=== PATIENT | female | born 1955 | race Caucasian/White ===

== ENCOUNTER 2018-08-29 03:36 | Emergency (ER) | payer BC ==
[~2018-08-29] VITALS: Ht 162.6 cm; Wt 70.0 kg
[2018-08-29] MEDS ORDERED: nitroGLYCERIN 0.4mg SUBLingual tab SL PRN (03:50)
[2018-08-29] MEDS ORDERED: ondansetron/PF 4mg/2ml inj IV ONE (04:00)
[2018-08-29] MEDS ORDERED: morphine 4 MG/ML inj SYRINge IV PRN (04:00)
[2018-08-29 04:12] LABS: BASOPHILS # (AUTO) 0.1 X10'3 (0-0.2); BASOPHILS % (AUTO) 0.8 % (0-1); EOSINOPHILS # (AUTO) 0.1 X10'3 (0-0.9); EOSINOPHILS % (AUTO) 1.4 % (0-6); HEMATOCRIT 40.8 % (35.0-45.0); HEMOGLOBIN 13.7 g/dl (12.0-16.0); LYMPHOCYTES # (AUTO) 1.6 X10'3 (1.1-4.8); LYMPHOCYTES % (AUTO) 15.8 % (21-51); MEAN CORPUSCULAR HEMOGLOBIN 30.5 PG (27.0-31.0); MEAN CORPUSCULAR HGB CONC 33.7 g/dL (33.0-36.5); MEAN CORPUSCULAR VOLUME 90.5 FL (78-98); MEAN PLATELET VOLUME 9.2 FL (7.4-10.4); MONOCYTES # (AUTO) 1.4 X10'3 (0-0.9); MONOCYTES % (AUTO) 13.9 % (2-12); NEUTROPHILS # (AUTO) 6.9 X10'3 (1.8-7.7); NEUTROPHILS % (AUTO) 68.1 % (42-75); PLATELET COUNT 364 X10'3 (140-440); RED BLOOD COUNT 4.51 X10'6 (4.20-5.60); RED CELL DISTRIBUTION WIDTH 16.2 % (11.5-14.5); WHITE BLOOD COUNT 10.2 X10'3 (4.5-11.0)
--- NOTE | 2018-08-29 04:14 | NUR ---
Pt anxious. She belches alot.
--- NOTE | 2018-08-29 04:15 | NUR ---
Morphine making her sleepy and "loupy."
--- NOTE | 2018-08-29 04:18 | NUR ---
will hold off with the nitro, as the patient really fell asleep quickly with the morphine. Covered her with 2 warmed blankets. Spouse said it is a good idea to wait with NTG, as she has a hx of dropping her bp with morphine alone.
[2018-08-29 04:22] LABS: ALANINE AMINOTRANSFERASE 29 U/L (12-78); ALBUMIN 3.9 G/DL (3.4-5.0); ALBUMIN/GLOBULIN RATIO 1.2 (1.1-1.5); ALKALINE PHOSPHATASE 83 IU/L (46-116); ANION GAP 10 (8-16); ASPARTATE AMINO TRANSFERASE 17 U/L (10-37); BILIRUBIN,TOTAL 0.3 MG/DL (0.1-1.0); BLOOD UREA NITROGEN 17 MG/DL (7-18); BUN/CREATININE RATIO 25.8 (6.6-38.0); CALCIUM 9.3 MG/DL (8.5-10.1); CHLORIDE 103 MMOL/L (99-107); CREATININE 0.66 MG/DL (0.40-0.90); GLUCOSE 97 MG/DL (70-104); POTASSIUM 4.1 MMOL/L (3.5-5.1); SODIUM 140 MMOL/L (135-145); TOTAL CARBON DIOXIDE 27.2 MMOL/L (24-32); TOTAL PROTEIN 7.2 G/DL (6.4-8.2); eGFR > 90 ML/MIN
[2018-08-29 04:28] LABS: D-DIMER 0.26 MG/L FEU (0-0.50)
[2018-08-29 04:29] LABS: MAGNESIUM 2.1 MG/DL (1.5-2.4)
--- NOTE | 2018-08-29 04:50 | NUR ---
MD made aware of the CXR and the widening that it may have so CTA ordered.
[2018-08-29] MEDS ORDERED: iohexol 350MG/ML 100ml bottle IV ONE (04:57)
--- NOTE | 2018-08-29 05:03 | NUR ---
pt going out for her CTA now per W/C.
[2018-08-29 08:08] VITALS: BP 114/73
== END 2018-08-29 08:13 | disposition home or self-care (01) ==
LOC: ER 03:37
DX: K44.9 Diaphragmatic hernia without obstruction or gangrene (principal); R07.9 Chest pain, unspecified; R91.1 Solitary pulmonary nodule; G89.29 Other chronic pain; M25.512 Pain in left shoulder; M06.9 Rheumatoid arthritis, unspecified; Z85.3 Personal history of malignant neoplasm of breast; Z98.890 Other specified postprocedural states; Z88.0 Allergy status to penicillin
CPT/HCPCS: 36415; 71045; 71275; 80053; 83735; 83880; 84484; 85025; 85379; 93005; 96374; 96375; 99284; J2270; J2405; Q9967

== ENCOUNTER 2023-06-07 05:19 | Day surgery (SDC) | payer BC ==
[2023-06-06 11:22] LABS: BASOPHILS # (AUTO) 0.1 X10'3 (0-0.2); BASOPHILS % (AUTO) 0.8 % (0-1); EOSINOPHILS # (AUTO) 0.1 X10'3 (0-0.9); EOSINOPHILS % (AUTO) 1.8 % (0-6); LYMPHOCYTES # (AUTO) 0.9 X10'3 (1.1-4.8); MEAN CORPUSCULAR HEMOGLOBIN 29.7 PG (27.0-31.0); MEAN CORPUSCULAR HGB CONC 33.8 g/dL (33.0-36.5); MEAN CORPUSCULAR VOLUME 87.9 FL (78-98); MEAN PLATELET VOLUME 9.3 FL (7.4-10.4); MONOCYTES # (AUTO) 0.9 X10'3 (0-0.9); NEUTROPHILS # (AUTO) 5.2 X10'3 (1.8-7.7); NEUTROPHILS % (AUTO) 72.4 % (42-75); PRE OP HEMATOCRIT 39.4 % (35.0-45.0); PRE OP HEMOGLOBIN 13.3 g/dL (12.0-16.0); PRE OP PLATELET COUNT 299 X10'3 (140-440); PRE OP WHITE BLOOD COUNT 7.2 10'3 (4.8-10.8); RED BLOOD COUNT 4.49 X10'6 (4.20-5.60); RED CELL DISTRIBUTION WIDTH 14.1 % (11.5-14.5)
[2023-06-06 11:43] LABS: ALBUMIN 3.7 G/DL (3.4-5.0); ALBUMIN/GLOBULIN RATIO 1.2 (1.1-1.5); ALKALINE PHOSPHATASE 78 IU/L (46-116); BLOOD UREA NITROGEN 9 MG/DL (7-18); BUN/CREATININE RATIO 15.8 (10.0-20.0); CALCIUM 8.5 MG/DL (8.5-10.1); CHLORIDE 103 MMOL/L (99-107); CREATININE 0.57 MG/DL (0.40-0.90); PRE OP ALT 33 U/L (30-65); PRE OP ANION GAP 8 (8-16); PRE OP AST 17 U/L (10-37); PRE OP BILIRUB, TOTAL 0.9 MG/DL (0.0-1.0); PRE OP GLUCOSE 95 MG/DL (70-104); PRE OP POTASSIUM 3.8 MMOL/L (3.4-5.1); PRE OP SODIUM 140 MMOL/L (135-145); TOTAL CARBON DIOXIDE 28.8 MMOL/L (24-32); TOTAL PROTEIN 6.9 G/DL (6.4-8.2); eGFR > 90 ML/MIN
[2023-06-07] VITALS (9 sets, daily range): BP systolic 113–135; BP diastolic 71–87; PULSE 63–86; RESP 14–59; TEMP 97.4; O2SAT 96–98
[~2023-06-07] VITALS: Ht 157.5 cm; Wt 64.6 kg
[~2023-06-07 05:19] MED LIST: ACET-2119 PO; ATOR20TA66 PO; FOLI1TAB27 PO; HYDR-3965 PO; HYDR200T73 PO; LOSA25TA41 PO; METH2.5T55 PO; OMEGA 3; VITAMIN C
[2023-06-07] MEDS ORDERED: famotidine 20mg tablet PO ONE (05:30)
[2023-06-07] MEDS ORDERED: ringers solution, lacted 1,000 ML IV SCH ×2 (05:30→09:25)
[2023-06-07] MEDS ORDERED: LIDOCAINE 4% (40MG/ML) topical solution 50ml **BRONCH ONLY ONE (06:47)
[2023-06-07] MEDS ORDERED: epiNEPHrine 1 MG/ML 1 ml ampule **BRONCH ONLY ONE (06:47)
[2023-06-07] MEDS ORDERED: glycopyrrolate 0.2mg/ml inj ONE (07:40)
[2023-06-07] MEDS ORDERED: sevoflurane 250ml liquid IH ONE (07:40)
[2023-06-07] MEDS ORDERED: neostigmine methylsulfate 1 MG/ML 10ml vial ONE (07:40)
[2023-06-07] MEDS ORDERED: fentaNYL/PF 50MCG/1 ML 2ML syringe ONE (07:45)
[2023-06-07] MEDS ORDERED: midazolam 1 mg/ML 2ml injection ONE (07:46)
[2023-06-07] MEDS ORDERED: propofol inj 20 ML IV ONE (08:07)
[2023-06-07] MEDS ORDERED: ondansetron/PF 4mg/2ml inj ONE (08:08)
[2023-06-07] MEDS ORDERED: dexamethasone sod phosphate 4mg/ml inj. ONE (08:08)
[2023-06-07] MEDS ORDERED: LIDOcaine 2% (20mg/ml) 5ml vial ONE (08:08)
[2023-06-07] MEDS ORDERED: rocuronium 10mg/ml inj IV ONE (08:08)
[2023-06-07] MEDS ORDERED: meperidine/PF 25mg/ml syringe IV PRN ×3 (09:25)
[2023-06-07] MEDS ORDERED: morphine 4 MG/ML inj SYRINge IV PRN (09:25)
[2023-06-07] MEDS ORDERED: morphine 2 MG/ML inj. syringe IV PRN (09:25)
[2023-06-07] MEDS ORDERED: labetalol 20mg/4ml (5mg/ml) syringe IV PRN (09:25)
[2023-06-07] MEDS ORDERED: hydrALAZINE 20mg/ml inj. IV PRN (09:25)
[2023-06-07] MEDS ORDERED: acetaminophen 1,000mg/100ml IV 100 ML IV ONE (09:25)
[2023-06-07] MEDS ORDERED: ondansetron/PF 4mg/2ml inj IV PRN (09:25)
[2023-06-07] MEDS ORDERED: proCHLORperazine 10 MG/2 ml inj IV PRN (09:25)
== END 2023-06-07 10:26 | disposition home or self-care (01) ==
LOC: PAS 05:19
PROVIDERS: ATTEND Internal Medicine Critical Care Medicine
DX: R91.8 Other nonspecific abnormal finding of lung field (principal); I10 Essential (primary) hypertension; E78.5 Hyperlipidemia, unspecified; Z87.891 Personal history of nicotine dependence; Z85.3 Personal history of malignant neoplasm of breast; Z79.899 Other long term (current) drug therapy; Z88.0 Allergy status to penicillin; Z98.890 Other specified postprocedural states
CPT/HCPCS: 31624; 31628; 31629; 31653; 36415; 71045; 71250; 80053; 82948; 85025; 87015; 87070; 87102; 87116; 87206; 94760; J1100; J2250; J2405; J2704; J3010; J3490; J7120; S2900; Z7506; Z7508; Z7512; 31622; 31625; 31626; 31627; A4618; J0171; J2710

== ENCOUNTER → 2023-10-31 | Day surgery (SDC) | payer BC ==
[2023-10-24 12:29] LABS: BASOPHILS # (AUTO) 0.1 X10'3 (0-0.2); BASOPHILS % (AUTO) 0.7 % (0-1); EOSINOPHILS # (AUTO) 0.1 X10'3 (0-0.9); EOSINOPHILS % (AUTO) 0.8 % (0-6); LYMPHOCYTES # (AUTO) 1.1 X10'3 (1.1-4.8); LYMPHOCYTES % (AUTO) 13.5 % (21-51); MEAN CORPUSCULAR HEMOGLOBIN 29.6 PG (27.0-31.0); MEAN CORPUSCULAR HGB CONC 32.9 g/dL (33.0-36.5); MEAN CORPUSCULAR VOLUME 89.8 FL (78-98); MEAN PLATELET VOLUME 9.3 FL (7.4-10.4); MONOCYTES # (AUTO) 0.9 X10'3 (0-0.9); MONOCYTES % (AUTO) 11.2 % (2-12); NEUTROPHILS % (AUTO) 73.8 % (42-75); PRE OP HEMATOCRIT 41.8 % (35.0-45.0); PRE OP HEMOGLOBIN 13.7 g/dL (12.0-16.0); PRE OP PLATELET COUNT 316 X10'3 (140-440); PRE OP WHITE BLOOD COUNT 8.1 10'3 (4.8-10.8); RED BLOOD COUNT 4.65 X10'6 (4.20-5.60)
[2023-10-24 12:41] LABS: ALBUMIN/GLOBULIN RATIO 1.2 (1.1-1.5); ALKALINE PHOSPHATASE 110 IU/L (46-116); BLOOD UREA NITROGEN 16 MG/DL (7-18); BUN/CREATININE RATIO 33.3 (10.0-20.0); CALCIUM 9.3 MG/DL (8.5-10.1); CHLORIDE 105 MMOL/L (99-107); CREATININE 0.48 MG/DL (0.40-0.90); PRE OP ALT 41 U/L (30-65); PRE OP ANION GAP 2 (8-16); PRE OP AST 27 U/L (10-37); PRE OP BILIRUB, TOTAL 0.8 MG/DL (0.0-1.0); PRE OP GLUCOSE 81 MG/DL (70-104); PRE OP POTASSIUM 3.8 MMOL/L (3.4-5.1); PRE OP SODIUM 140 MMOL/L (135-145); TOTAL CARBON DIOXIDE 32.6 MMOL/L (24-32); TOTAL PROTEIN 7.4 G/DL (6.4-8.2); eGFR > 90 ML/MIN
[2023-10-24 12:56] LABS: PRE OP INR 0.9 INR; PRE OP PROTIME 10.1 SECONDS (9.0-12.0)
[2023-10-31] VITALS (11 sets, daily range): BP systolic 120–145; BP diastolic 73–87; PULSE 67–108; RESP 12–18; TEMP 98.2; O2SAT 96–100
[~2023-10-31] VITALS: Ht 157.5 cm; Wt 64.4 kg
[~2023-10-31] MED LIST changes: -ACET-2119 PO; -ATOR20TA66 PO; +CALCIUM CITRATE PO; +COD LIVER PO; +CYCL-1 PO; -FOLI1TAB27 PO; +GLUCOSAMINE PO; -HYDR200T73 PO; -METH2.5T55 PO; -OMEGA 3; +[UNRECOGNIZED DRUG - OTHER]; +dexamethasone sod phosphate 4mg/ml inj. ONE; +ePHEDrine 50MG/ML INJ. ONE; +fentaNYL/PF 50MCG/1 ML 2ML syringe ONE; +meperidine/PF 25mg/ml syringe IV PRN; +methylene blue (5mg/ml) 50mg/10ml ampul IV ONE; +midazolam 1 mg/ML 2ml injection ONE; +morphine 2 MG/ML inj. syringe IV PRN; +morphine 4 MG/ML inj SYRINge IV PRN; +ondansetron/PF 4mg/2ml inj IV PRN; +ondansetron/PF 4mg/2ml inj ONE; +proCHLORperazine 10 MG/2 ml inj IV PRN; +propofol inj 20 ML IV ONE; +ringers solution, lacted 1,000 ML IV SCH; +sevoflurane 250ml liquid IH ONE
[2023-10-31] MEDS: famotidine 20mg tablet PO ONE (12:33)
[2023-10-31] MEDS: ringers solution, lacted 1,000 ML IV SCH (12:33)
[2023-10-31] MEDS: clindamycin-Cleocin 900mg/D5W 50 ML IV ONE (12:33)
[2023-10-31] MEDS: gentamicin inj 300 MG in normal saline 100ml IV soln 100 ML IV ONE (12:33)
[2023-10-31] MEDS: BUPIVAcaine 2.5mg/ml inj 50ml vial (contains preservative) ONE (13:19)
[2023-10-31] MEDS: LIDOcaine 1% 30ml preserv. free vial ONE (14:02)
== END | disposition home or self-care (01) ==
LOC: PAS 11:41
PROVIDERS: ATTEND Surgery
DX: N62 Hypertrophy of breast (principal); Z79.899 Other long term (current) drug therapy; Z79.01 Long term (current) use of anticoagulants; Z88.0 Allergy status to penicillin; Z96.651 Presence of right artificial knee joint
CPT/HCPCS: 19125; 36415; 76098; 80053; 82948; 85025; 85610; 85730; 93005; J1100; J1580; J2250; J2405; J2704; J3010; J3490; J7030; J7120; Z7506; Z7508; Z7512; A4215; A4618; A6258; A7000; Q9968